=== PATIENT | female | born 1990 | race Two or more races ===

== ENCOUNTER 2017-12-08 05:49 | Day surgery (SDC) | payer OTHER | END 2017-12-08 20:10 | disposition home or self-care (01) | LOC: CIR.AMB 05:49 | DX: E65 Localized adiposity (principal) ==

== ENCOUNTER 2018-03-16 13:21 | Outpatient (CLI) | payer OTHER | END 2018-03-16 14:13 | disposition home or self-care (01) | LOC: SONOGRAMA 13:21 | DX: N92.1 Excessive and frequent menstruation with irregular cycle (principal) ==

== ENCOUNTER 2018-04-24 08:44 | Outpatient (CLI) | payer OTHER | END 2018-04-24 08:46 | disposition home or self-care (01) | LOC: SONOGRAMA 08:44 | DX: D72.820 Lymphocytosis (symptomatic) (principal); D34 Benign neoplasm of thyroid gland ==

== ENCOUNTER 2019-05-21 10:33 | Outpatient (CLI) | payer OTHER | END 2019-05-21 10:38 | disposition home or self-care (01) | LOC: SONOGRAMA 10:33 | DX: N83.291 Other ovarian cyst, right side (principal) ==

== ENCOUNTER 2019-09-18 12:13 | Emergency (ER) | payer OTHER ==
[~2019-09-18] VITALS: Ht 160 cm; Wt 65.8 kg
[2019-09-18] MEDS ORDERED: ADDERALL 20 MG20 MG (12:29)
== END 2019-09-18 15:19 | disposition home or self-care (01) ==
LOC: ER 12:13
DX: K52.89 Other specified noninfective gastroenteritis and colitis (principal)

== ENCOUNTER 2020-11-09 10:11 | Outpatient (CLI) | payer OTHER ==
[~2020-11-09 10:11] MED LIST: ADDERALL 20 MG20 MG
== END 2020-11-09 10:13 | disposition home or self-care (01) ==
LOC: SONOGRAMA 10:11
PROVIDERS: ATTEND Obstetrics & Gynecology
DX: N83.291 Other ovarian cyst, right side (principal); N93.8 Other specified abnormal uterine and vaginal bleeding

== ENCOUNTER 2020-12-02 05:50 | Day surgery (SDC) | payer OTHER | END 2020-12-02 15:45 | disposition home or self-care (01) | LOC: CIR.AMB 05:50 | PROVIDERS: ATTEND Obstetrics & Gynecology | DX: N84.0 Polyp of corpus uteri (principal); Z20.822 Contact with and (suspected) exposure to COVID-19 ==

== ENCOUNTER 2020-12-19 10:22 | Outpatient (CLI) | payer OTHER | END 2020-12-19 10:35 | disposition home or self-care (01) | LOC: RAD 10:22 | DX: M41.84 Other forms of scoliosis, thoracic region (principal); M99.01 Segmental and somatic dysfunction of cervical region; M54.2 Cervicalgia; M99.02 Segmental and somatic dysfunction of thoracic region; M99.03 Segmental and somatic dysfunction of lumbar region; M99.04 Segmental and somatic dysfunction of sacral region; M99.05 Segmental and somatic dysfunction of pelvic region ==

== ENCOUNTER 2022-07-15 11:52 | Outpatient (CLI) | payer OTHER | END 2022-07-15 11:59 | disposition home or self-care (01) | LOC: MRI 11:52 | PROVIDERS: ATTEND Physical Medicine & Rehabilitation | DX: S83.241A Other tear of medial meniscus, current injury, right knee, initial encounter (principal) | CPT/HCPCS: 73721 ==

== ENCOUNTER 2024-04-04 08:21 | Outpatient (CLI) | payer OTHER | END 2024-04-04 08:29 | disposition home or self-care (01) | LOC: SONOGRAMA 08:21 | PROVIDERS: ATTEND Obstetrics & Gynecology | DX: N83.291 Other ovarian cyst, right side (principal) ==